=== PATIENT | male | born 1975 | race Caucasian/White ===

== ENCOUNTER 2022-03-07 21:10 | Emergency (ER) | payer OTHER ==
[2022-03-07] MEDS ORDERED: Ketorolac Tromethamine 30 MG/ML VIAL ONE (21:52)
[2022-03-07] MEDS ORDERED: Dexamethasone 4 mg/ml Vial ONE (21:52)
[2022-03-07] MEDS ORDERED: Aluminum & Magnesium Hydroxide 60 ML, Lidocaine 2% Viscous Solution 30 ML, diphenhydrAM... SSW SCH (22:00)
[2022-03-07] MEDS ORDERED: Lidocaine 1% PF 5 ML VIAL ONE (22:49)
[2022-03-07] MEDS ORDERED: Benzocaine 20% Spray 60 ML CAN ONE (22:53)
== END 2022-03-08 00:03 | disposition home or self-care (01) ==
LOC: ERS 21:10
DX: J36 Peritonsillar abscess (principal); K21.9 Gastro-esophageal reflux disease without esophagitis; E78.5 Hyperlipidemia, unspecified; E03.9 Hypothyroidism, unspecified; Z79.82 Long term (current) use of aspirin; Z79.899 Other long term (current) drug therapy
CPT/HCPCS: 96374; J1100; J1885; Q0163